=== PATIENT | female | born 1985 | race Hispanic/Latino ===

== ENCOUNTER → 2020-12-06 | Emergency (ER) | payer BC ==
[~2020-12-06] VITALS: Ht 167.6 cm; Wt 70.8 kg
[~2020-12-06] MED LIST: CYCLOBENZAPRINE HCL 10 MG TABLET ONE; LIDOCAINE 5% TOPICAL PATCH TP SCH; LIDOP TP; ORPH-43 PO; ORPHENADRINE CITRATE 30 MG/ML ML IM ONE
[2020-12-06 22:50] VITALS: BP 127/68
== END | disposition home or self-care (01) ==
LOC: EDH 20:16
DX: G44.209 Tension-type headache, unspecified, not intractable (principal); M62.838 Other muscle spasm; K08.89 Other specified disorders of teeth and supporting structures; G43.909 Migraine, unspecified, not intractable, without status migrainosus; Z88.8 Allergy status to other drugs, medicaments and biological substances; Z79.899 Other long term (current) drug therapy

== ENCOUNTER 2022-08-07 18:57 | Emergency (ER) | payer BC ==
[~2022-08-07] VITALS: Ht 167.6 cm; Wt 68.0 kg
[~2022-08-07 18:57] MED LIST changes: -CYCLOBENZAPRINE HCL 10 MG TABLET ONE; -LIDOCAINE 5% TOPICAL PATCH TP SCH; -ORPHENADRINE CITRATE 30 MG/ML ML IM ONE
[2022-08-07 19:35] LABS: EOSINOPHILS % (AUTO) 3.3 % (0.0-8.0); HEMATOCRIT 32.4 % (36-48); LYMPHOCYTES % (AUTO) 21.4 % (21.0-51.0); MEAN CORPUSCULAR HEMOGLOBIN 30.1 pg (27.0-33.0); MEAN CORPUSCULAR HGB CONC 31.2 g/dL (32.0-36.0); MEAN CORPUSCULAR VOLUME 96.4 fL (79-99); MONOCYTES % (AUTO) 6.5 % (3.0-13.0); NEUTROPHILS % (AUTO) 67.5 % (40.0-77.0); PLATELET COUNT (AUTO) 424 K/uL (130-400); RED BLOOD CELL COUNT(AUTO) 3.36 MIL/uL (4.00-5.50); RED CELL DISTRIBUTION WIDTH 14.6 % (11.0-15.5); WHITE BLOOD COUNT (AUTO) 9.3 K/uL (4.8-10.8)
[2022-08-07 19:43] LABS: APPEARANCE,URINE CLEAR (CLEAR); BILIRUBIN,URINE NEGATIVE (NEGATIVE); COLOR,URINE YELLOW (YELLOW); GLUCOSE, URINE (UA) NEGATIVE (NEGATIVE); KETONES,URINE NEGATIVE (NEGATIVE); LEUKOCYTE ESTERASE ,URINE NEGATIVE Leu/uL (NEGATIVE); NITRATE,URINE NEGATIVE (NEGATIVE); OCCULT BLOOD,URINE LARGE (NEGATIVE); PH,URINE 5.5 (5.0-8.0); PROTEIN,URINE NEGATIVE (NEGATIVE); UROBILINOGEN,URINE 0.2 mg/dL (0.2-1.0)
[2022-08-07 19:43] LABS: CREATININE 0.7 mg/dL (0.5-1.5); POTASSIUM 3.7 mmol/L (3.5-5.1)
[2022-08-07 19:52] LABS: BACTERIA,URINE RARE /HPF (None Seen); MUCUS,URINE RARE LPF (None Seen); RBC,URINE >100 /HPF (0-1); SQUAMOUS EPITHELIAL CELL,UR RARE /HPF (0-2); WBC,URINE 26-50 /HPF (0-1); YEAST,URINE BUDDING FEW /HPF (None Seen)
[2022-08-07 19:54] LABS: TOTAL PROTEIN, SERUM 6.9 g/dL (6.0-8.3)
[2022-08-07 22:28] VITALS: BP 132/63
== END 2022-08-07 22:27 | disposition home or self-care (01) ==
LOC: EDH 18:57
DX: O03.9 Complete or unspecified spontaneous abortion without complication (principal); O26.891 Other specified pregnancy related conditions, first trimester; G43.909 Migraine, unspecified, not intractable, without status migrainosus; J32.9 Chronic sinusitis, unspecified; Z88.8 Allergy status to other drugs, medicaments and biological substances
CPT/HCPCS: 36415; 76817; 80053; 81001; 84702; 85025; 86900; 86901; 87088

== ENCOUNTER 2024-09-10 11:06 | Emergency (ER) | payer BC ==
[~2024-09-10] VITALS: Ht 170.2 cm; Wt 76.7 kg
[~2024-09-10 11:06] MED LIST changes: -ORPH-43 PO; +ORPH100T4 PO
--- NOTE | 2024-09-10 11:42 | ERN ---
General Stated Complaint: ABD PAIN Time Seen by MD: 11:07 Time Seen by Midlevel: 11:07 Source: patient History of Present Illness Initial Comments The patient is a 31-year-old female with no significant past medical history presenting to the emergency department for evaluation of diffuse abdominal pain that has been ongoing for the last couple of days. Denies any previous abdo silvestre surgeries. Denies any nausea, vomiting, fever, chills, or any other symptoms at this time. Denies being . She does report having a miscarriage approximately two months ago and had to have a D&C performed. Allergies: Coded Allergies: diclofenac (Unverified Allergy, Unknown, 12/06/20) Home Meds Active Scripts Orphenadrine Citrate (Orphenadrine Citrate) 100 Mg Tablet.er, 100 MG PO BID, #20 TAB 0 Refills Prov:HUGO HARDIN MD 12/06/20 Lidocaine (Lidoderm Patch 5%) 1 Patch Patch, 1 PATCH TP DAILY, #30 ADH.PATCH 0 Refills Prov:HUGO HARDIN MD 12/06/20 Past Medical History Past Medical History: Migraines, Sinusitis Past Surgical History: None Social History Social History: Negative ROS Dictation CONSTITUTIONAL: Negative except for HPI HEAD/FACE: Negative except for HPI EENT: Negative except for HPI RESPIRATORY: Negative except for HPI GASTROINTESTINAL/ABDOMINAL: Negative except for HPI GENITOURINARY: Negative except for HPI MUSCULOSKELETAL: Negative except for HPI INTEGUMENTARY: Negative except for HPI NEUROLOGICAL/PSYCH: Negative except for HPI HEMATOLOGIC/LYMPHATIC: Negative except for HPI All Systems Negative, Except as noted above. 13 point review of systems assessed and all negative except for above. Physical Exam Physical Exam Dictation Vital Signs reviewed General Appearance: Alert, oriented x 3, no acute distress, well developed, nourished. Head and Face: non-traumatic. Eyes: PERRL, pink conjunctivas, eyelid no trauma, anterior chamber with arcus senilis. Ears: Pinnas intact and no signs of trauma or erythema ear canals clear and no discharge TM no erythema Nose: No discharge, no bleeding. Oropharynx: Mouth normal, tongue pink, pharynx clear,no erythema, tonsils no exudates, no abscesses noted, mucous membrane moist Neck: Supple, non-tender, no thyromegaly, no masses, no JVD, no bruits Breast:Deferred Chest:No tenderness, no crepitus, no paradoxical movement, no retractions Lungs:Clear, well-ventilated, symmetric, no rales, no wheezing, no rhonchi, no stridor, good breath sounds bilaterally Heart: Regular rate, regular rhythm, no murmur, no gallops Vascular: no peripheral edema, Abdomen: Soft, positive bowel sounds, nondistended, no guarding, Moderate diffuse abdominal tenderness, no rebound, no masses no hepatomegaly, no splenomegaly, no Tuttle's sign, no hernias. Rectal: Deferred Genital: Deferred Neurological: Normal speech, motor function intact, sensory function intact Musculoskeletal: Neck nontender, full range of motion, back nontender, full range of motion, Extremities: nontender, full range of motion Skin: Color pink, dry, no turgor, no rash, no lacerations, no abrasions, no contusions. Lymphatic: Deferred Results Laboratory and Microbiology Lab and Micro Result Laboratory Tests Test 09/10/24 11:38 White Blood Count 9.3 K/uL (4.8-10.8) Red Blood Count 4.98 MIL/uL (4.00-5.50) Hemoglobin 14.8 g/dL (12.0-16.0) Hematocrit 43.6 % (36-48) Mean Corpuscular Volume 87.6 fL (79-99) Mean Corpuscular Hemoglobin 29.7 pg (27.0-33.0) Mean Corpuscular Hemoglobin Concent 33.9 g/dL (32.0-36.0) Red Cell Distribution Width 13.0 % (11.0-15.5) Platelet Count 301 K/uL (130-400) Mean Platelet Volume 9.6 fL (7.5-10.5) Immature Granulocyte % (Auto) 0.2 % (0-1) Neutrophils (%) (Auto) 57.8 % (40.0-77.0) Lymphocytes (%) (Auto) 29.1 % (21.0-51.0) Monocytes (%) (Auto) 6.8 % (3.0-13.0) Eosinophils (%) (Auto) 5.5 % (0.0-8.0) Basophils (%) (Auto) 0.6 % (0.0-5.0) Neutrophils # (Auto) 5.3 K/uL (1.8-7.7) Lymphocytes # (Auto) 2.7 K/uL (1.0-4.8) Monocytes # (Auto) 0.6 K/uL (0.1-1.0) Eosinophils # (Auto) 0.51 K/uL (0.00-0.70) Basophils # (Auto) 0.06 K/uL (0.00-0.20) Absolute Immature Granulocyte (auto 0.02 K/uL (0-1) Nucleated Red Blood Cells 0.0 % (0.0-0.19) Sodium Level 132 mmol/L (136-145) L Potassium Level 4.1 mmol/L (3.5-5.1) Chloride Level 98 mmol/L (101-111) L Carbon Dioxide Level 29 mmol/L (21-32) Blood Urea Nitrogen 18 mg/dL (7-18) Creatinine 0.8 mg/dL (0.5-1.0) Glomerular Filtration Rate Calc 97 mL/min (>90) Random Glucose 94 mg/dL (70-105) Total Calcium 8.9 mg/dL (8.5-10.1) Total Bilirubin 0.6 mg/dL (0.2-1.0) Direct Bilirubin 0.1 mg/dL (0.0-0.3) Aspartate Amino Transf (AST/SGOT) 18 U/L (10-37) Alanine Aminotransferase (ALT/SGPT) 33 U/L (12-78) Alkaline Phosphatase 69 U/L (50-136) Total Protein 7.2 g/dL (6.0-8.3) Albumin 3.6 g/dL (3.5-5.0) Lipase 49 U/L (16-77) Serum Test, Qualitative NEGATIVE (NEGATIVE) Labs Reviewed?: Yes MDM MDM: Differential diagnosis: Constipation, pancreatitis, acute cholecystitis, p regnancy There are no social concerns with this patient. Prescription drug management Prescriptions will include: MiraLax Medical management and examination interpretation discussions were had by me with other qualified healthcare professionals as indicated for the patient's care. ED Course Orders Procedure Category Date Status Time Cbc With Differential LAB 09/10/24 Complete 11:18 Basic Metabolic Panel LAB 09/10/24 Complete 11:18 Hepatic Function Panel LAB 09/10/24 Complete 11:18 Lipase LAB 09/10/24 Complete 11:18 Testing, LAB 09/10/24 Complete Serum Hcg 11:18 Urinalysis Profile LAB 09/10/24 Logged 11:18 Ct Abdomen/Pelvis W/O CT 09/10/24 Resulted Contrast 11:18 Vital Signs Date Time Temp Pulse Resp B/P (MAP) Pulse Ox O2 Delivery O2 Flow Rate FiO2 09/10/24 12:20 97.7 59 20 109/63 99 0 [facility] [address] [place] [address] IMAGING REPORT Signed PATIENT: JANINE ESTEVES MR#: [id number] : 1985 SEX: F AGE: 39 LOCATION: [facility] ORDER 1120 STATUS: REG ER REPORT#: [id number] SERVICE 1118 REASON: diffuse abd pain ORDERING PHYSICIAN: COURTNEY GARNICA PROCEDURE: ABD PEL WO - CT ABDOMEN/PELVIS W/O CONTRAST CT ABDOMEN WITHOUT CONTRAST. CT PELVIS WITHOUT CONTRAST. INDICATION: Diffuse abdominal pain TECHNIQUE: Routine transaxial imaging using 5 mm slice thickness through the abdomen and pelvis without the administration of IV contrast. Thin slice reconstructions are also provided. Coronal and sagittal reformatted images acquired for interpretation. CT was performed with one or more of the following dose reduction techniques: Automated exposure control, adjustment of the mA and/or kV according to patient size, or use of iterative reconstruction technique. COMPARISON: None FINDINGS: ON NONCONTRAST IMAGING: ABDOMEN: Heart size is normal. Visible lung bases are clear. No abnormal renal calcifications, hydronephrosis, perinephric inflammation, or proximal hydroureter detected. The liver is normal in size and smooth in contour without biliary duct dilation. The spleen is normal in size and attenuation. The gallbladder appears normal. The pancreas appears normal without pancreatic duct dilation. The adrenal glands appear normal. No significant abdominal, retrocrural or retroperitoneal adenopathy noted. No evidence for intra-abdominal free air or organized fluid collection. No aortic aneurysmal dilation identified. PELVIS: No abnormal calcifications within the urinary bladder or distal ureters. No evidence for free air or organized pelvic fluid collection. No significant pelvic adenopathy detected. Moderate stool burden. Terminal ileum appears unremarkable. The appendix appears normal. Retroverted uterus. Visible osseous structures are intact. IMPRESSION: Moderate stool burden without evidence for any acute intra-abdominal or pelvic process. DICTATED BY: TOÑA COHEN MD DATE: 09/10/24 1304 ELECTRONICALLY SIGNED BY: TOÑA COHEN MD DATE: 09/10/24 1308 DX & DISP Disposition: Discharge Departure Impression: Primary Impression: Constipation Condition: Stable Scripts Polyethylene Glycol 3350 (Miralax) 17 Gram Powd.pack 17 GM PO DAILY for constipation, #20 PACKET 0 Refills Prov: COURTNEY GARNICA 09/10/24 Additional Instructions: Your blood work today is unremarkable. You are not anemic. Your electrolytes are normal. Your kidney function is normal. Your test was negative. Your CT scan of the abdomen shows constipation but no other acute abnormality. Please follow up with your primary care doctor in 2-3 days for repeat evaluation. Referrals: MARIA GUADALUPE CASTILLO MD (PCP) Time of Disposition: 13:58 I have reviewed the case, and I agree with, Diagnosis and Plan I performed the substantive portion of the visit. I have reviewed and personally made and approve the management plan that is documented in the note by myself or the JOSE. I acknowledge for responsibility for the patient's management plan. COURTNEY GARNICA Sep 10, 2024 11:42
[2024-09-10 11:51] LABS: BASOPHILS # (AUTO) 0.06 K/uL (0.00-0.20); BASOPHILS % (AUTO) 0.6 % (0.0-5.0); EOSINOPHILS # (AUTO) 0.51 K/uL (0.00-0.70); EOSINOPHILS % (AUTO) 5.5 % (0.0-8.0); HEMATOCRIT 43.6 % (36-48); IMMATURE GRANULOCYTE ABSOLUTE 0.02 K/uL (0-1); LYMPHOCYTES # (AUTO) 2.7 K/uL (1.0-4.8); LYMPHOCYTES % (AUTO) 29.1 % (21.0-51.0); MEAN CORPUSCULAR HEMOGLOBIN 29.7 pg (27.0-33.0); MEAN CORPUSCULAR HGB CONC 33.9 g/dL (32.0-36.0); MEAN CORPUSCULAR VOLUME 87.6 fL (79-99); MONOCYTES # (AUTO) 0.6 K/uL (0.1-1.0); MONOCYTES % (AUTO) 6.8 % (3.0-13.0); NEUTROPHILS # (AUTO) 5.3 K/uL (1.8-7.7); NEUTROPHILS % (AUTO) 57.8 % (40.0-77.0); PLATELET COUNT (AUTO) 301 K/uL (130-400); RED BLOOD CELL COUNT(AUTO) 4.98 MIL/uL (4.00-5.50); WHITE BLOOD COUNT (AUTO) 9.3 K/uL (4.8-10.8)
[2024-09-10 12:02] LABS: CREATININE 0.8 mg/dL (0.5-1.0); POTASSIUM 4.1 mmol/L (3.5-5.1)
[2024-09-10 12:06] LABS: ALBUMIN 3.6 g/dL (3.5-5.0); BILIRUBIN,DIRECT 0.1 mg/dL (0.0-0.3); BILIRUBIN,TOTAL 0.6 mg/dL (0.2-1.0); TOTAL PROTEIN, SERUM 7.2 g/dL (6.0-8.3)
[2024-09-10 12:20] VITALS: BP 109/63; PULSE 59; RESP 20; TEMP 97.7
--- NOTE | 2024-09-10 13:08 | HMCIMG ---
CT ABDOMEN WITHOUT CONTRAST. CT PELVIS WITHOUT CONTRAST. INDICATION: Diffuse abdominal pain TECHNIQUE: Routine transaxial imaging using 5 mm slice thickness through the abdomen and pelvis without the administration of IV contrast. Thin slice reconstructions are also provided. Coronal and sagittal reformatted images acquired for interpretation. CT was performed with one or more of the following dose reduction techniques: Automated exposure control, adjustment of the mA and/or kV according to patient size, or use of iterative reconstruction technique. COMPARISON: None FINDINGS: ON NONCONTRAST IMAGING: ABDOMEN: Heart size is normal. Visible lung bases are clear. No abnormal renal calcifications, hydronephrosis, perinephric inflammation, or proximal hydroureter detected. The liver is normal in size and smooth in contour without biliary duct dilation. The spleen is normal in size and attenuation. The gallbladder appears normal. The pancreas appears normal without pancreatic duct dilation. The adrenal glands appear normal. No significant abdominal, retrocrural or retroperitoneal adenopathy noted. No evidence for intra-abdominal free air or organized fluid collection. No aortic aneurysmal dilation identified. PELVIS: No abnormal calcifications within the urinary bladder or distal ureters. No evidence for free air or organized pelvic fluid collection. No significant pelvic adenopathy detected. Moderate stool burden. Terminal ileum appears unremarkable. The appendix appears normal. Retroverted uterus. Visible osseous structures are intact. IMPRESSION: Moderate stool burden without evidence for any acute intra-abdominal or pelvic process.
[2024-09-10] MEDS ORDERED: POLY17PO4 PO (14:20)
--- NOTE | 2024-09-10 14:24 | NUR ---
PT CAME UP TO TRIAGE WINDOW AND STATES SHE IS NO LONGER WAITING AND WALKED OUT ER LOBBY.
== END 2024-09-10 15:29 | disposition home or self-care (01) ==
LOC: EDH 11:06
DX: K59.00 Constipation, unspecified (principal); G43.909 Migraine, unspecified, not intractable, without status migrainosus; Z79.899 Other long term (current) drug therapy
CPT/HCPCS: 36415; 74176; 80048; 80076; 83690; 84703; 85025; 99284

== ENCOUNTER 2024-10-09 19:41 | Emergency (ER) | payer BC ==
[~2024-10-09] VITALS: Ht 170.2 cm; Wt 74.8 kg
[~2024-10-09 19:41] MED LIST changes: +POLY17PO4 PO
[2024-10-09 19:42] VITALS: BP 133/61; PULSE 81; RESP 16; TEMP 98.7
--- NOTE | 2024-10-09 19:48 | NUR ---
UA CUP PROVIDED
--- NOTE | 2024-10-09 19:54 | NUR ---
EDIT DUE TO PT STATES LMP WRONG
--- NOTE | 2024-10-09 20:13 | NUR ---
PT STATES SHE MAY LEAVE BECAUSE THEY JUST TEXT HER THAT HER DOGS " GOT OUT"
--- NOTE | 2024-10-09 20:16 | NUR ---
PT STATES SHE IS LEAVING TO CHECK ON HER DOGS
== END 2024-10-09 20:17 | disposition left against medical advice (07) ==
LOC: EDH 19:41
DX: R10.84 Generalized abdominal pain (principal); Z53.21 Procedure and treatment not carried out due to patient leaving prior to being seen by health care provider

== ENCOUNTER 2025-02-07 00:03 | Emergency (ER) | payer BC ==
[~2025-02-07] VITALS: Ht 172.7 cm; Wt 80.7 kg
--- NOTE | 2025-02-07 00:09 | NUR ---
UA CUP PROVIDED
[2025-02-07 00:45] LABS: IMMATURE GRANULOCYTE ABSOLUTE 0.05 K/uL (0-1); NUCLEATED RED BLOOD CELLS 0.0 % (0.0-0.19); PLATELET COUNT (AUTO) 286 K/uL (130-400); RED BLOOD CELL COUNT(AUTO) 4.77 MIL/uL (4.00-5.50); RED CELL DISTRIBUTION WIDTH 12.8 % (11.0-15.5); WHITE BLOOD COUNT (AUTO) 14.2 K/uL (4.8-10.8)
[2025-02-07 00:49] LABS: ADD UA MICROSCOPIC YES; APPEARANCE,URINE CLEAR (CLEAR); GLUCOSE, URINE (UA) NEGATIVE (NEGATIVE); LEUKOCYTE ESTERASE ,URINE NEGATIVE Leu/uL (NEGATIVE); NITRATE,URINE NEGATIVE (NEGATIVE); OCCULT BLOOD,URINE +- (TRACE) (NEGATIVE)
[2025-02-07 00:50] LABS: SQUAMOUS EPITHELIAL CELL,UR RARE /HPF (0-2)
[2025-02-07 00:56] LABS: CREATININE 0.6 mg/dL (0.5-1.0); GLOMERULAR FILTR. RATE CALC 118.0 mL/min (>90); GLUCOSE,RANDOM 94.0 mg/dL (70-105); SODIUM SERUM 137.0 mmol/L (136-145); UREA NITROGEN, BLOOD 19.0 mg/dL (7-18)
--- NOTE | 2025-02-07 01:20 | ERN ---
ED Note History of Present Illness Stated Complaint: ABD PAIN, VAGINAL BLEEDING Chief Complaint: Vaginal Bleeding Time Seen by MD: 00:22 Time Seen by Midlevel: 00:22 Dictation: The patient is a 39-year-old female with no past medical history who presents to the emergency department with complaints of vaginal bleeding and abdominal cramping onset prior to arrival. Patient reports being 13 weeks . A1. Patient has not seen her OBGYN but has an appointment scheduled. Patient has ever has been following up with a OB in [place]. Reports he had similar episodes two weeks ago. Patient reports no clots and reports that bleeding was only when she wiped. Allergies: Coded Allergies: diclofenac (Unverified Allergy, Unknown, 12/06/20) Home Meds Active Scripts Polyethylene Glycol 3350 (Miralax) 17 Gram Powd.pack, 17 GM PO DAILY for constipation, #20 PACKET 0 Refills Prov:COURTNEY GARNICA 09/10/24 Orphenadrine Citrate (Orphenadrine Citrate) 100 Mg Tablet.er, 100 MG PO BID, #20 TAB 0 Refills Prov:HUGO HARDIN MD 12/06/20 Lidocaine (Lidoderm Patch 5%) 1 Patch Patch, 1 PATCH TP DAILY, #30 ADH.PATCH 0 Refills Prov:HUGO HARDIN MD 12/06/20 Past Medical History Past Medical History: Migraines, Sinusitis Surgical History: None Social History: Negative LMP: Dec 05, 2024 : 3 Para: 2 Aborts: 1 RN Note Reviewed/Agreed w/PFSH: Yes Review of System Dictation Constitutional: Negative for fever,chills, and weight loss Eyes: Negative for injury, pain,redness, and discharge ENT: Negative for injury,pain or swelling Cardiovascular: Negative for chest pain, palpitations, and edema Respiratory: Negative for shortness of breath, cough, and wheezing, Abdomen/GI: Negative for nausea, vomiting, diarrhea, and constipation positive for abdominal pain Back: Negative for injury and pain : Positive for vaginal bleeding MS/Extremity: Negative for injury and deformity Skin: Negative for rash, and discoloration Neuro: Negative for headache, weakness, numbness, tingling, and seizure Psych: Negative for suicide ideation, homicidal ideation, and hallucinations Initial Vital Sign VS Vital Signs Date Time Temp Pulse Resp B/P (MAP) Pulse Ox O2 Delivery O2 Flow Rate FiO2 02/07/25 00:05 97.2 72 18 113/67 100 Room Air 02/07/25 01:36 0 21 Physical Exam Dictation Vital Signs reviewed General Appearance: Alert, oriented x 3, no acute distress, well developed, nourished. Head and Face: non-traumatic. Eyes: PERRL, pink conjunctivas, eyelid no trauma, anterior chamber with arcus senilis. Ears: Pinnas intact and no signs of trauma or erythema ear canals clear and no discharge TM no erythema Nose: No discharge, no bleeding. Oropharynx: Mouth normal, tongue pink. pharynx clear,no erythema, tonsils no exudates, no abscesses noted, mucous membrane moist Neck: Supple, non-tender, no thyromegaly, no masses, no JVD, no bruits Breast:Deferred Chest:No tenderness, no crepitus, no paradoxical movement, no retractions Lungs:Clear, well-ventilated, symmetric, no rales, no wheezing, no rhonchi, no stridor, good breath sounds bilaterally Heart: Regular rate, regular rhythm, no murmur, no gallops Vascular: no peripheral edema, Abdomen: Soft, positive bowel sounds, nondistended, no guarding, nontender, no rebound, no masses no hepatomegaly, no splenomegaly, no Tuttle's sign, no hernias. Rectal: Deferred Genital: Deferred Neurological: Normal speech, motor function intact, sensory function intact Musculoskeletal: Neck nontender, full range of motion, back nontender, full range of motion, Extremities: nontender, full range of motion Skin: Color pink, dry, no turgor, no rash, no lacerations, no abrasions, no contusions. Lymphatic: Deferred Results (Laboratory/Radiology) Laboratory/Radiology Laboratory Tests Test 02/07/25 00:34 White Blood Count 14.2 K/uL (4.8-10.8) H Red Blood Count 4.77 MIL/uL (4.00-5.50) Hemoglobin 14.3 g/dL (12.0-16.0) Hematocrit 41.6 % (36-48) Mean Corpuscular Volume 87.2 fL (79-99) Mean Corpuscular Hemoglobin 30.0 pg (27.0-33.0) Mean Corpuscular Hemoglobin Concent 34.4 g/dL (32.0-36.0) Red Cell Distribution Width 12.8 % (11.0-15.5) Platelet Count 286 K/uL (130-400) Mean Platelet Volume 9.8 fL (7.5-10.5) Immature Granulocyte % (Auto) 0.4 % (0-1) Neutrophils (%) (Auto) 65.6 % (40.0-77.0) Lymphocytes (%) (Auto) 26.3 % (21.0-51.0) Monocytes (%) (Auto) 6.2 % (3.0-13.0) Eosinophils (%) (Auto) 1.2 % (0.0-8.0) Basophils (%) (Auto) 0.3 % (0.0-5.0) Neutrophils # (Auto) 9.3 K/uL (1.8-7.7) H Lymphocytes # (Auto) 3.7 K/uL (1.0-4.8) Monocytes # (Auto) 0.9 K/uL (0.1-1.0) Eosinophils # (Auto) 0.17 K/uL (0.00-0.70) Basophils # (Auto) 0.04 K/uL (0.00-0.20) Absolute Immature Granulocyte (auto 0.05 K/uL (0-1) Nucleated Red Blood Cells 0.0 % (0.0-0.19) Urine Color LIGHT-YELLOW (YELLOW) Urine Appearance CLEAR (CLEAR) Urine pH 6.0 (5.0-8.0) Urine Specific [place] 1.017 (1.001-1.031) Urine Protein NEGATIVE mg/dL (NEGATIVE) Urine Glucose (UA) NEGATIVE mg/dL (NEGATIVE) Urine Ketones NEGATIVE mg/dL (NEGATIVE) Urine Occult Blood +- (TRACE) (NEGATIVE) H Urine Nitrate NEGATIVE (NEGATIVE) Urine Bilirubin NEGATIVE mg/dL (NEGATIVE) Urine Urobilinogen 0.2 mg/dL (0.2-1.0) Urine Leukocyte Esterase NEGATIVE [place]/uL Urine RBC 0-1 /HPF (0-1) Urine WBC 0-1 /HPF (0-1) Urine Squamous Epithelial Cells RARE /HPF (0-2) Urine Bacteria None /HPF (None Seen) Sodium Level 137 mmol/L (136-145) Potassium Level 3.5 mmol/L (3.5-5.1) Chloride Level 104 mmol/L (101-111) Carbon Dioxide Level 27 mmol/L (21-32) Blood Urea Nitrogen 19 mg/dL (7-18) H Creatinine 0.6 mg/dL (0.5-1.0) Glomerular Filtration Rate Calc 118 mL/min (>90) Random Glucose 94 mg/dL (70-105) Total Calcium 9.2 mg/dL (8.5-10.1) Human Chorionic Gonadotropin, Quant 857099 mIU/mL (0-5) H REASON: VAGINAL BLEEDING ORDERING PHYSICIAN: CYNTHIA BLANDON MD PROCEDURE: OB <14 - US OB <14 WEEKS EXAM: US Obstetrical, Complete <14 weeks CLINICAL HISTORY: Vaginal bleeding. TECHNIQUE: Transabdominal imaging of the maternal pelvis and a < 14-week gestation with image documentation. COMPARISON: None provided. FINDINGS: GESTATION: Single intrauterine gestation. Gestational sac measures 3.61 cm, corresponding to 8 weeks 6 days. CRL measures 2.89 cm, corresponding to 9 weeks 1 day. heart rate measures 156 bpm. Yolk sac is visualized. UTERUS: Measures 11 x 7.5 x 9.4 cm. A possible small subchorionic bleed is identified, measuring 1 x 2 x 1.1 cm. No myometrial mass. CERVIX: Closed. Unremarkable. RIGHT OVARY: Not well visualized. LEFT OVARY: Measures 3.7 x 2.6 x 3.0 cm. Normal vascular flow. No adnexal mass. FREE FLUID: None. COMMENTS: Limited views due to abundant bowel gas. IMPRESSION: Single viable intrauterine , estimated gestational age 9 weeks 1 day by CRL. heart rate measures 156 bpm. A small possible subchorionic hemorrhage. /[place] Labs Reviewed?: Yes ED Course ED Course Orders Procedure Category Date Status Time Cbc With Differential LAB 02/07/25 Complete 00:20 Basic Metabolic Panel LAB 02/07/25 Complete 00:20 Us Ob <14 Weeks US 02/07/25 Resulted 00:20 Hcg,Quantitative LAB 02/07/25 Complete 00:20 Urinalysis Profile LAB 02/07/25 Complete 00:26 Acetaminophen 500mg PHA 02/07/25 Complete Tab (Tylenol 500mg T 00:30 0.9%Nacl 1000ml (Ns PHA 02/07/25 Complete 1000ml) 00:30 Current Medications Medications (Trade) Dose Ordered Sig/Tiffany Route PRN Reason Start Time Stop Time Status Last Admin Dose Admin Acetaminophen (TYLenol 500MG TAB) 1,000 mg ONCE ONCE PO 02/07/25 00:30 02/07/25 00:33 DC Sodium Chloride 1,000 ml @ 0 mls/hr ONCE ONCE IV 02/07/25 00:30 02/07/25 00:33 DC 02/07/25 01:24 Vital Signs Date Time Temp Pulse Resp B/P (MAP) Pulse Ox O2 Delivery O2 Flow Rate FiO2 02/07/25 01:36 97.9 72 18 112/68 98 Room Air* 0 21 02/07/25 00:05 97.2 72 18 113/67 100 Room Air Medical Decision Making MDM The patient is a 39-year-old female with no past medical history who presents to the emergency department with complaints of vaginal bleeding and abdominal cramping onset prior to arrival. Patient reports being 13 weeks . A1. Patient has not seen her OBGYN but has an appointment scheduled. Patient has ever has been following up with a OB in [place]. Reports he had similar episodes two weeks ago. Patient reports no clots and reports that bleeding was only when she wiped. CBC showed mild leukocytosis, no anemia, chemistry showed no electrolyte imbalance, normal renal function, urinalysis unremarkable. Ultrasound revealed viable intrauterine of 9 weeks with a heart tone of 156 with a possible subchorionic hemorrhage. On physical exam patient is in no acute distress, stable vital signs. Patient will be discharged to follow up with the OBGYN. Differential diagnosis: Threatened , subarachnoid hemorrhage, UTI, ectopic Need for hospitalization: Patient does not meet criteria for hospitalization. There are no social concerns with this patient. DX & DISP Disposition: Discharge Departure Impression: Primary Impression: Threatened Additional Impressions: Intrauterine , 9 weeks gestation of Condition: Stable Additional Instructions: Please follow up with the OBGYN. Avoid any strenuous physical activity. No sexual intercourse. Get plenty of rest Until you get cleared by your OBGYN. If anything worsens please return to ER. FOLLOW-UP WITH PRIMARY CARE PROVIDER IN 1 TO 2 DAYS. TAKE MEDICATIONS DIRECTED HERE IN THE EMERGENCY ROOM. OKAY TO CONTINUE HOME MEDICATIONS UNLESS OTHERWISE DISCUSSED DURING YOUR VISIT IN THE EMERGENCY ROOM TODAY. RETURN TO YOUR NEAREST EMERGENCY ROOM IF SYMPTOMS WORSEN OR IF THERE IS NO IMPROVEMENT. CALL 911 IF YOU NEED IMMEDIATE ASSISTANCE. TAKE TYLENOL [id number] NEEDED AND IF NO CONTRAINDICATIONS ARE PRESENT. INCREASE ORAL HYDRATION. A WOUND CULTURE OR URINE CULTURE WAS ORDERED HERE IN THE EMERGENCY ROOM DEPARTMENT PLEASE FOLLOW-UP WITH PRIMARY CARE PROVIDER AND ADVISE THEM TO GET REPEAT PORTS FROM OUR FACILITY. IF YOU HAD ANY IZAIAH WRAP/SPLINTS THAT WERE APPLIED HERE, PLEASE DO NOT REMOVE THEM UNTIL YOU SEE YOUR PRIMARY CARE OR SPECIALTY. Referrals: SHAUNA BOB MD (PCP) Time of Disposition: 02:28 I have reviewed the case, and I agree with, Diagnosis and Plan ACOSTA MORELAND Feb 07, 2025 01:20
[2025-02-07] MEDS: 0.9%NACL 1000ML 1,000 ML IV ONE (01:24)
[2025-02-07 01:25] LABS: HCG,QUANTITATIVE 128620.0 mIU/mL (0-5)
--- NOTE | 2025-02-07 02:14 | HMCIMG ---
EXAM: US Obstetrical, Complete <14 weeks CLINICAL HISTORY: Vaginal bleeding. TECHNIQUE: Transabdominal imaging of the maternal pelvis and a < 14-week gestation with image documentation. COMPARISON: None provided. FINDINGS: GESTATION: Single intrauterine gestation. Gestational sac measures 3.61 cm, corresponding to 8 weeks 6 days. CRL measures 2.89 cm, corresponding to 9 weeks 1 day. heart rate measures 156 bpm. Yolk sac is visualized. UTERUS: Measures 11 x 7.5 x 9.4 cm. A possible small subchorionic bleed is identified, measuring 1 x 2 x 1.1 cm. No myometrial mass. CERVIX: Closed. Unremarkable. RIGHT OVARY: Not well visualized. LEFT OVARY: Measures 3.7 x 2.6 x 3.0 cm. Normal vascular flow. No adnexal mass. FREE FLUID: None. COMMENTS: Limited views due to abundant bowel gas. IMPRESSION: Single viable intrauterine , estimated gestational age 9 weeks 1 day by CRL. heart rate measures 156 bpm. A small possible subchorionic hemorrhage. /[place]
[2025-02-07 02:33] VITALS: BP 110/54; PULSE 74; RESP 20; TEMP 98; O2SAT 97
== END 2025-02-07 03:00 | disposition home or self-care (01) ==
LOC: EDH 00:03
DX: O20.0 Threatened abortion (principal); O99.351 Diseases of the nervous system complicating pregnancy, first trimester; G43.909 Migraine, unspecified, not intractable, without status migrainosus; Z3A.13 13 weeks gestation of pregnancy; Z3A.09 9 weeks gestation of pregnancy
CPT/HCPCS: 99284; 96360; 76801; 80048; 84702; 85025; 81001; 36415; J7030